=== PATIENT | female | born 1980 | race Asian ===

== ENCOUNTER 2017-12-10 19:40 | Emergency (ER) | payer BC ==
[2017-12-10 19:47] VITALS: BP 133/81
[2017-12-10] MEDS ORDERED: cephALEXin 250 MG CAPSULE PO STA (20:06)
[2017-12-10] MEDS ORDERED: HYDROcod/ACETAM 5/325 MG TABLET PO STA (20:07)
--- NOTE | 2017-12-10 20:08 | ED Physician Documentation ---
History of Present Illness - Stated complaint Stated Complaint: FEMALE - Chief complaint Chief Complaint: General - History obtained from History obtained from: Patient - History of Present Illness Timing: Other (2 months of pain, fever started today.) Pain level max: 6 Pain level now: 6 Improved by: nothing Worsened by: - Additonal information Additional information: Patient is a 37-year-old female who is breast-feeding her 7-month-old son, has had some pain over the past 2 months, worse over the past 2 days and developed fevers today. Also noted redness and swelling to the right breast. 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 - Present Medications Home Medications: Ambulatory Orders Medication Instructions Recorded Confirmed Cephalexin [Keflex] 500 mg PO Q6H #28 capsule 12/10/17 Hydrocodone/Acetaminophen 1 - 2 each PO Q6H PRN #14 tablet 12/10/17 [Hydrocodon-Acetaminophen 5-325] Lactobacillus Acidophilus 1 tab PO DAILY PM 12/10/17 12/10/17 [Probiotic Acidophilus] Valacyclovir HCl [Valtrex] 1,000 mg PO PRN 12/10/17 - Allergies Allergies/Adverse Reactions: Allergies Allergy/AdvReac Type Severity Reaction Status Date / Time No Known Drug Allergies Allergy Verified 12/10/17 19:56 - Social History Does the pt smoke?: No Smoking Status: Never smoker Does the pt drink ETOH?: Yes Does the pt have substance abuse?: No - Immunizations Immunizations are current?: Yes PD ED PE NORMAL - Vitals Vital signs reviewed: Yes - General General: Alert and oriented X 3, No acute distress - HEENT HEENT: Moist mucous membranes - Neck Neck: Supple, no meningeal sign - Cardiac Cardiac: RRR - Respiratory Respiratory: No respiratory distress, Clear bilaterally - Derm Derm: Warm and dry, Other (L breast normal. R breast is mildly swollen with erythema to the inferior aspect. no abscess or induation.) - Neuro Neuro: Alert and oriented X 3 - Psych Psych: Normal mood, Normal affect Results - Vitals Vitals: Vital Signs - 24 hr 12/10/17 19:45 Temperature 37.8 C H Heart Rate 113 H Respiratory 20 Rate Blood Pressure 133/81 H O2 Saturation 100 Oxygen O2 Source Room air PD MEDICAL DECISION MAKING - ED course Complexity details: considered differential, d/w patient ED course: Patient is a 37-year-old female presents to the emergency department what appears to be mastitis of the right breast. Will place on antibiotics and pain medication for home. Encouraged her to continue breast-feeding with the antibiotics, but careful with breast-feeding while taking any narcotic medication. No abscess. Patient counseled regarding signs and symptoms for which I believe and urgent re-evaluation would be necessary. Patient with good understanding of and agreement to plan and is comfortable going home at this time This document was made in part using voice recognition software. While efforts are made to proofread this document, sound alike and grammatical errors may occur. Departure - Departure Disposition: 01 Home, Self Care Clinical Impression: Mastitis Condition: Good Instructions: ED Breast Infec Follow-Up: Anabelle Riley PA-C [Primary Care Provider] - Within 1 week Prescriptions: Cephalexin [Keflex] 500 mg PO Q6H #28 capsule Hydrocodone/Acetaminophen [Hydrocodon-Acetaminophen 5-325] 1 - 2 each PO Q6H PRN #14 tablet PRN Reason: pain Comments: Return if you worsen. Take all antibiotics until gone. Use the narcotics sparingly as they may pass into the breast milk and affect your child. Do not drink alcohol or drive while on narcotic pain medicine. Note that many narcotic pain relievers also contain tylenol/acetaminophen. Please ensure that your total dose of acetaminophen from all sources does not exceed 3 grams (3000mg) per day. You may constipated on this medication, take a stool softener such as "Colace" twice a day while you are on it. Also recommend a [id number] laxative such as senna or MiraLAX any day that you do not have a bowel movement. If you received narcotic pain medication in the emergency department, do not drive or operate machinery for the next 24 hours. Discharge Date/Time: 12/10/17 20:15
== END 2017-12-10 20:15 | disposition home or self-care (01) ==
LOC: ED 19:40
DX: N61.0 Mastitis without abscess (principal)
CPT/HCPCS: 99283; A9270

== ENCOUNTER 2021-09-24 10:14 | Emergency (ER) | payer BC ==
[2021-09-24 10:58] LABS: BILIRUBIN,URINE NEGATIVE (NEGATIVE); GLUCOSE, URINE (UA) NEGATIVE (NEGATIVE); KETONES,URINE (UA) NEGATIVE (NEGATIVE); LEUKOCYTE ESTERASE, URINE NEGATIVE (NEGATIVE); NITRITE,URINE NEGATIVE (NEGATIVE); OCCULT BLOOD,URINE SMALL (NEGATIVE); PROTEIN,URINE NEGATIVE (NEGATIVE); UROBILINOGEN,URINE 0.2 (NORMAL) E.U./dL (NORMAL)
[2021-09-24 11:12] LABS: CLARITY,URINE CLEAR (CLEAR)
[2021-09-24 11:18] LABS: WBC,URINE 0-3 /HPF (0-5)
[2021-09-24 11:19] LABS: BACTERIA,URINE Few /HPF (None Seen); RBC,URINE 0-5 /HPF (0-5); SQUAMOUS EPITHELIAL CELL,UR FEW Squamous (<= Few)
[2021-09-24 11:22] LABS: BASOPHILS # (AUTO) 0.1 10^3/uL (0.0-0.1); BASOPHILS % (AUTO) 0.5 %; EOSINOPHILS # (AUTO) 0.2 10^3/uL (0.0-0.7); EOSINOPHILS % (AUTO) 1.7 %; HGB - HEMOGLOBIN 14.8 g/dL (12.0-16.0); LYMPHOCYTES # (AUTO) 2.6 10^3/uL (1.5-3.5); LYMPHOCYTES % (AUTO) 24.1 %; MEAN CORPUSCULAR HEMOGLOBIN 27.7 pg (27.0-31.0); MEAN CORPUSCULAR HGB CONC 34.4 g/dL (32.0-36.0); MEAN CORPUSCULAR VOLUME 80.5 fL (81.0-99.0); MEAN PLATELET VOLUME 10.8 fL (7.9-10.8); MONOCYTES # (AUTO) 1.1 10^3/uL (0.0-1.0); MONOCYTES % (AUTO) 10.7 %; NEUTROPHILS # (AUTO) 6.7 10^3/uL (1.5-6.6); NEUTROPHILS % (AUTO) 62.7 %; PLT - PLATELET COUNT 52 10^3/uL (130-450); RED BLOOD COUNT 5.34 10^6/uL (4.20-5.40); RED CELL DISTRIBUTION WIDTH 12.1 % (12.0-15.0); WHITE BLOOD COUNT 10.6 x10^3/uL (4.8-10.8)
--- NOTE | 2021-09-24 11:49 | ED Physician Documentation ---
History of Present Illness - Stated complaint Stated Complaint: BODY ACHES - Chief complaint Chief Complaint: Neuro - History obtained from History obtained from: Patient - History of Present Illness Timing: How many days ago (2-3) Pain level max: 4 Pain level now: 3 - Additonal information Additional information: Patient is a 41-year-old female who complains of body aches, rhinorrhea and congestion for the past several days. She also complains of a sore throat, worse with swallowing. Occasionally coughs up sputum. Denies any possibility of . Has had a tubal ligation. Has had her Covid vaccinations. Patient states that she has a history of pneumonia in the past and is concerned about recurrent pneumonia. 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, 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 - Present Medications Home Medications: Ambulatory Orders Medication Instructions Recorded Confirmed Lactobacillus Acidophilus 1 tab PO DAILY PM 12/10/17 09/24/21 [Probiotic Acidophilus] Valacyclovir HCl [Valtrex] 1,000 mg PO PRN PRN 12/10/17 09/24/21 - Allergies Allergies/Adverse Reactions: Allergies Allergy/AdvReac Type Severity Reaction Status Date / Time No Known Drug Allergies Allergy Verified 09/24/21 10:28 - Social History Does the pt smoke?: No Smoking Status: Never smoker Does the pt drink ETOH?: Yes Does the pt have substance abuse?: No - Immunizations Immunizations are current?: Yes PD ED PE NORMAL - Vitals Vital signs reviewed: Yes - General General: Alert and oriented X 3, No acute distress, Well developed/nourished - HEENT HEENT: PERRL, Ears normal, Moist mucous membranes, Other (Posterior cobblestoning in the oropharynx. No exudates.) - Neck Neck: Supple, no meningeal sign - Cardiac Cardiac: RRR, Strong equal pulses - Respiratory Respiratory: No respiratory distress, Clear bilaterally - Abdomen Abdomen: Soft, Non tender, Non distended - Derm Derm: Warm and dry - Extremities Extremities: No edema - Neuro Neuro: Alert and oriented X 3 - Psych Psych: Normal mood, Normal affect Results - Vitals Vitals: Vital Signs - 24 hr 09/24/21 09/24/21 10:24 13:15 Temperature 36.2 C L Heart Rate 109 H 113 H Respiratory 16 16 Rate Blood Pressure 144/77 H 135/77 H O2 Saturation 99 100 Oxygen O2 Source Room air - Labs Labs: Laboratory Tests 09/24/21 09/24/21 09/24/21 10:50 11:09 11:40 WBC 10.6 RBC 5.34 Hgb 14.8 Hct 43.0 MCV 80.5 L MCH 27.7 MCHC 34.4 RDW 12.1 Plt Count 52 L MPV 10.8 Neut # (Auto) 6.7 H Lymph # (Auto) 2.6 Millard # (Auto) 1.1 H Eos # (Auto) 0.2 Baso # (Auto) 0.1 Absolute Nucleated RBC 0.00 Nucleated RBC % 0.0 Sodium 135 Potassium 4.4 Chloride 102 Carbon Dioxide 21 Anion Gap 12.0 BUN 10 Creatinine 0.5 Estimated GFR (MDRD) 135 Glucose 93 Calcium 9.1 Total Bilirubin 0.6 AST 25 ALT 31 Alkaline Phosphatase 73 Total Protein 7.6 Albumin 3.8 Globulin 3.8 Albumin/Globulin Ratio 1.0 Lipase 32 Urine Color LIGHT YELLOW Urine Clarity CLEAR Urine pH 6.0 Ur Specific Lanse <=1.005 Urine Protein NEGATIVE Urine Glucose (UA) NEGATIVE Urine Ketones NEGATIVE Urine Occult Blood SMALL H Urine Nitrite NEGATIVE Urine Bilirubin NEGATIVE Urine Urobilinogen 0.2 (NORMAL) Ur Leukocyte Esterase NEGATIVE Urine RBC 0-5 Urine WBC 0-3 Ur Squamous Epith Cells FEW Squamous Urine Bacteria Few Urine Culture Comments NOT INDICATED - Rads (name of study) cxr Radiology: Final report received, EMP read contemporaneously, See rad report (no acute disease) PD MEDICAL DECISION MAKING - ED course Complexity details: reviewed results, re-evaluated patient, considered differential, d/w patient ED course: Patient appears to have a viral upper respiratory infection. She is well- appearing, nontoxic. Afebrile. We will have her follow-up with her doctor for further care. Covid test was sent. Patient counseled regarding signs and symptoms for which I believe and urgent re-evaluation would be necessary. Patient with good understanding of and agreement to plan and is comfortable going home at this time This document was made in part using voice recognition software. While efforts are made to proofread this document, sound alike and grammatical errors may occur. Departure - Departure Disposition: Home, Self Care Clinical Impression: Viral upper respiratory infection Condition: Good Instructions: ED URI Viral Follow-Up: MACIE JOHNSON [Primary Care Provider] - Comments: You appear to have a viral upper respiratory infection. A Covid test was sent. This will be back in 1 to 2 days. Drink plenty of fluids and rest. Return if you worsen. Discharge Date/Time: 09/24/21 13:16
[2021-09-24 11:59] LABS: ALBUMIN 3.8 g/dL (3.2-5.5); BILIRUBIN,TOTAL 0.6 mg/dL (0.2-1.0); CALCIUM 9.1 mg/dL (8.5-10.3); CREATININE 0.5 mg/dL (0.4-1.0); POTASSIUM 4.4 mmol/L (3.5-5.0); TOTAL PROTEIN 7.6 g/dL (6.7-8.2)
--- NOTE | 2021-09-24 12:44 | XRAY Report ---
PROCEDURE: Chest 2 View X-Ray INDICATIONS: cough TECHNIQUE: 2 view(s) of the chest. COMPARISON: None. FINDINGS: SUPPORT DEVICES: None. LUNGS/PLEURA: No focal consolidation, pleural effusion or space-occupying pneumothorax. A few nodular densities are seen, likely reflecting granulomatous change. MEDIASTINUM: The cardiomediastinal silhouette is within normal limits. BONES/SOFT TISSUES: No acute abnormality. IMPRESSION: 1.No acute cardiopulmonary abnormality. Reviewed by: Venkat Demarco MD on 09/24/2021 12:43 PM PST Approved by: Venkat Demarco MD on 09/24/2021 12:43 PM PST Station ID: [id number]
[2021-09-24 13:16] VITALS: BP 135/77
== END 2021-09-24 13:16 | disposition home or self-care (01) ==
LOC: ED 10:14
DX: J06.9 Acute upper respiratory infection, unspecified (principal); Z20.822 Contact with and (suspected) exposure to COVID-19
CPT/HCPCS: 36415; 80053; 81001; 83690; 85025; 87086; 99282; 99284

== ENCOUNTER 2023-09-24 06:49 | Emergency (ER) | payer BC ==
[2023-09-24] MEDS ORDERED: ACETAMINOPHEN 500 MG TABLET PO STA (07:29)
[2023-09-24 07:54] LABS: RAPID STREP SCREEN POSITIVE (Negative)
[2023-09-24] MEDS ORDERED: AMOXICILLIN 250 MG CAPSULE PO STA (08:03)
--- NOTE | 2023-09-24 08:09 | ED Physician Documentation ---
PD HPI HEENT - Stated complaint Stated Complaint: BODY PX/SORE THROAT - Chief complaint Chief Complaint: Heent - History obtained from History obtained from: Patient - Additional information Additional information: Patient is a 43-year-old female presenting for evaluation of right-sided sore throat for the past 2 days with body aches and chills. She has not measured her temperature. She has been using acetaminophen and ibuprofen for the body aches and chills with the last dose being 400 mg of ibuprofen at 2:00 this morning. She has had on and off discomfort in the right tonsil since about November of this year. She has seen ENT for it to did not offer any intervention. She states she coughed up to tonsil stones yesterday. She has had an on and off cough for a few months. Since she had COVID which was 3 months ago.She has been tolerating p.o. 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 Review of Systems Constitutional: reports: Chills, Myalgias Throat: reports: Sore throat Cardiac: denies: Chest pain / pressure Respiratory: reports: Cough. denies: Dyspnea GI: denies: Abdominal Pain, Vomiting PD PAST MEDICAL HISTORY - Past Medical History Past Medical History: Yes Cardiovascular: None Respiratory: Pneumonia Neuro: None Endocrine/Autoimmune: None GI: None SPRING LAYER: None : None HEENT: None Psych: None Musculoskeletal: None Derm: None Other Past Medical History: TONSIL STONE/NODULE? 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, Tubal ligation - Present Medications Home Medications: Ambulatory Orders Medication Instructions Recorded Confirmed Lactobacillus Acidophilus 1 tab PO DAILY PM 12/10/17 09/24/21 [Probiotic Acidophilus] Valacyclovir HCl [Valtrex] 1,000 mg PO PRN PRN 12/10/17 09/24/21 Amoxicillin 500 mg PO BID 10 Days #20 cap 09/24/23 - Allergies Allergies/Adverse Reactions: Allergies Allergy/AdvReac Type Severity Reaction Status Date / Time No Known Drug Allergies Allergy Verified 09/24/23 07:05 - Social History Does the pt smoke?: No Smoking Status: Never smoker Does the pt drink ETOH?: Yes Does the pt have substance abuse?: No - Immunizations Immunizations are current?: Yes - POLST Patient has POLST: No PD ED PE NORMAL - General General: Alert and oriented X 3, No acute distress, Well developed/nourished - HEENT HEENT: Atraumatic, Moist mucous membranes, Other (Right tonsillar enlargement, no signs of peritonsillar abscess, uvula is midline, normal speech, no trismus, no exudate) - Neck Neck: Supple, no meningeal sign - Cardiac Cardiac: RRR, No murmur - Respiratory Respiratory: No respiratory distress, Clear bilaterally - Abdomen Abdomen: Soft, Non tender, Non distended - Derm Derm: Warm and dry - Neuro Neuro: Normal speech Results - Vitals Vitals: Vital Signs - 24 hr 09/24/23 09/24/23 09/24/23 07:02 08:07 08:26 Temperature 37.1 C 38.0 C H Heart Rate 126 H 128 H Respiratory 19 18 Rate Blood Pressure 138/75 H 140/76 H O2 Saturation 100 98 Oxygen O2 Source Room air - Labs Labs: Laboratory Tests 09/24/23 09/24/23 07:31 07:33 Nasal Adenovirus (PCR) NOT DETECTED Nasal B. parapertussis DNA (PCR) NOT DETECTED Nasal Coronavir 229E PCR NOT DETECTED Nasal Coronavir HKU1 PCR NOT DETECTED Nasal Coronavir NL63 PCR NOT DETECTED Nasal Coronavir OC43 PCR NOT DETECTED Nasal Enterovir/Rhinovir PCR NOT DETECTED Nasal Influenza B PCR NOT DETECTED Nasal Influenza A PCR NOT DETECTED Nasal Parainfluen 1 PCR NOT DETECTED Nasal Parainfluen 2 PCR NOT DETECTED Nasal Parainfluen 3 PCR NOT DETECTED Nasal Parainfluen 4 PCR NOT DETECTED Nasal RSV (PCR) NOT DETECTED Nasal B.pertussis DNA PCR NOT DETECTED Nasal C.pneumoniae (PCR) NOT DETECTED [employer] Human Metapneumo PCR NOT DETECTED Nasal M.pneumoniae (PCR) NOT DETECTED Nasal SARS-CoV-2 (PCR) NOT DETECTED Group A Strep Rapid POSITIVE H PD Medical Decision Making - ED course Complexity details: reviewed results, re-evaluated patient, d/w patient ED course: Patient is a 43-year-old female here presenting for evaluation of sore throat, body aches, chills for the past 2 days. On exam has no signs of deep space infection or peritonsillar abscess. Normal speech. She is tachycardic and did develop a low-grade fever here. She was given acetaminophen. Her strep test is positive and she was started on antibiotics.Chest x-ray is negative for infiltrate or effusion. Respiratory swab is negative. Patient understands plan for treatment with antibiotics as well as concerning symptoms to return for. Departure - Departure Disposition: 01 Home, Self Care Clinical Impression: Strep pharyngitis Condition: Stable Instructions: ED Strep Pharyngitis Conf Prescriptions: Amoxicillin 500 mg PO BID 10 Days #20 cap Comments: You have tested positive for strep infection. I am starting you on an antibiotic called amoxicillin and sent this prescription to [facility] in [place]. Please make sure to complete the course of the antibiotics. Continue with acetaminophen or ibuprofen as needed for fever or pain. Please also make sure you are staying hydrated. Return to the emergency department with any worsening symptoms. You have a COVID test which is pending.We will notify you if this is positive. The swab will also check for other viruses and you can check the results of the swab later today. Forms: PCP List, Activity restrictions Discharge Date/Time: 09/24/23 08:26
[2023-09-24 08:31] VITALS: BP 140/76; O2SAT 98
[2023-09-24 08:33] LABS: B. PARAPERTUSSIS- RESP PCR PAN NOT DETECTED; B. PERTUSSIS- RESP PCR PANEL NOT DETECTED; C. PNEUMONIAE- RESP PCR PANEL NOT DETECTED; CORONAVIRUS 229E-RESP PCR NOT DETECTED; CORONAVIRUS HKU1-RESP PCR NOT DETECTED; CORONAVIRUS NL63-RESP PCR NOT DETECTED; CORONAVIRUS OC43-RESP PCR NOT DETECTED; HUMAN METAPNEUMOVIRUS NOT DETECTED; INFLUENZA A- RESP PCR PANEL NOT DETECTED; INFLUENZA B - RESP PCR PANEL NOT DETECTED; M. PNEUMONIAE- RESP PCR PANEL NOT DETECTED; PARAINFLUENZA VIRUS 1 NOT DETECTED; PARAINFLUENZA VIRUS 2 NOT DETECTED; PARAINFLUENZA VIRUS 3 NOT DETECTED; PARAINFLUENZA VIRUS 4 NOT DETECTED; RHINOVIRUS/ENTEROVIRUS NOT DETECTED; RSV- RESP PCR PANEL NOT DETECTED; SARS-CoV-2 -RESP PCR PANEL NOT DETECTED
--- NOTE | 2023-09-24 08:33 | XRAY Report ---
PROCEDURE: Chest 1 View X-Ray INDICATIONS: cough x weeks TECHNIQUE: One view of the chest was acquired. COMPARISON: 09/24/2021 FINDINGS: Surgical changes and devices: None. Lungs and pleura: No dense consolidation or pleural effusion. Mediastinum: Normal heart size Bones and chest wall: Degenerative changes IMPRESSION: No acute radiographic abnormality on this single view portable radiograph. Agree with preliminary rep ort. Reviewed by: Jhonny Arevalo MD on 09/24/2023 8:31 AM PST Approved by: Jhonny Arevalo MD on 09/24/2023 8:31 AM PST Station ID: [id number]
== END 2023-09-24 08:26 | disposition home or self-care (01) ==
LOC: ED 06:49
DX: J02.0 Streptococcal pharyngitis (principal); Z11.52 Encounter for screening for COVID-19; Z79.899 Other long term (current) drug therapy
CPT/HCPCS: 71045; 87430; 87633; 99284; A9270

== ENCOUNTER 2024-03-02 08:07 | Emergency (ER) | payer BC ==
--- NOTE | 2024-03-02 09:26 | ED Physician Documentation ---
PD HPI URI - Stated complaint Stated Complaint: BODY ACHES - Chief complaint Chief Complaint: General - History obtained from History obtained from: Patient - History of Present Illness Timing - onset: How many months ago (3) Timing duration: Months (3) Timing details: Gradual onset, Still present, Waxing and waning Associated symptoms: Nasal congestion, Rhinorrhea, Sinus pain, Sore throat, Productive cough, Dyspnea Improves by: Rest, Medication Similar symptoms before: No diagnosis Recently seen: Clinic - Additional information Additional information: Soto Ibrahim is a 43y/o female with a 3 month long history of aches and URI symptoms. She has a persistent cough productive of sputum. She has been seen a the [facility] X [facility]. She has been tested for virus. There have been no specific physical findings. 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 Surgical 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: No /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, Tubal 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 - Present Medications Home Medications: Ambulatory Orders Medication Instructions Recorded Confirmed Lactobacillus Acidophilus 1 tab PO DAILY PM 12/10/17 09/24/21 [Probiotic Acidophilus] Valacyclovir HCl [Valtrex] 1,000 mg PO PRN PRN 12/10/17 09/24/21 Amoxicillin 500 mg PO BID 10 Days #20 cap 09/24/23 Amox/Clav 875/125 [Augmentin] 1 each PO Q12H #20 tablet 03/02/24 - Allergies Allergies/Adverse Reactions: Allergies Allergy/AdvReac Type Severity Reaction Status Date / Time No Known Drug Allergies Allergy Verified 03/02/24 08:20 - Social History Does the pt smoke?: No Smoking Status: Never smoker Does the pt drink ETOH?: Yes Does the pt have substance abuse?: No - Immunizations Immunizations are current?: Yes - POLST Patient has POLST: No PD ED PE NORMAL - Vitals Vital signs reviewed: Yes (tachy and hypertensive ) - General General: Alert and oriented X 3, No acute distress, Well developed/nourished - HEENT HEENT: Atraumatic, PERRL, EOMI, Ears normal, Moist mucous membranes, Pharynx benign, Dentition benign, Other (no sinus point tenderness) - Neck Neck: Supple, no meningeal sign, No bony TTP - Cardiac Cardiac: RRR, No murmur - Respiratory Respiratory: No respiratory distress, Clear bilaterally - Abdomen Abdomen: Soft, Non tender - Back Back: No CVA TTP, No spinal TTP - Derm Derm: Normal color, Warm and dry, No rash - Extremities Extremities: No deformity, No edema - Neuro Neuro: Alert and oriented X 3, securities dealer 2-12 intact, No motor deficit, No sensory deficit, Normal speech Eye Opening: Spontaneous Motor: Obeys Commands Verbal: Oriented GCS Score: 15 - Psych Psych: Normal mood, Normal affect Results - Vitals Vitals: Vital Signs - 24 hr 03/02/24 03/02/24 08:15 10:17 Temperature 36.4 C L Heart Rate 119 H 78 Respiratory 20 20 Rate Blood Pressure 151/91 H 150/68 H O2 Saturation 97 100 Oxygen O2 Source Room air - Rads (name of study) CHEST Relevant Findings:: Prelim report reviewed (Impression: No acute cardiopulmonary process.), EMP independent interpretation of test PD Medical Decision Making - ED course Complexity details: considered differential, d/w patient ED course: 43-year-old female with a months long history of cough productive of sputum and bodyaches. She does not have anything obvious on physical examination with the exception of some cryptic tonsils which are without exudate. She does have postnasal drainage and production of green phlegm and I suspect she has some inflammation associated with some superficial infection. She is given a dose of dexamethasone here and we will place her on a short course of antibiotic for any improvement possible. In addition she could have long COVID and she may have symptoms similar for several more months. I discussed this possibility with the patient as well. Departure - Departure Disposition: 01 Home, Self Care Clinical Impression: Sinusitis Qualifiers: Sinusitis location: unspecified location Chronicity: subacute Qualified Code(s): J01.90 - Acute sinusitis, unspecified Condition: Stable Instructions: ED Sinusitis Abx Tx Follow-Up: SHAHEED RODRIGUEZ DO [Physician No Access] - Prescriptions: Amox/Clav 875/125 [Augmentin] 1 each PO Q12H #20 tablet Comments: Soto, today it looks like there is likely a portion of your sinuses that have a subacute infection resulting in periodic phlegm production. As your body tries to fight this it typically will cause some body aches. There is an alternative explanation for this. You may have long COVID. Today we are placing you on a course of empiric antibiotic with the expectation that we will get resolution of the phlegm production. The antibiotic has been e-scribed to the [facility] in [place]. We gave you a dose of dexamethasone today and we expect improvement in nasal congestion for 2 days. My recommendation for persistent nasal congestion is to use over the counter Nasacort. Discharge Date/Time: 03/02/24 10:19
[2024-03-02] MEDS: CHERRY SYRUP 10 ML UDC PO ONE (09:40)
[2024-03-02] MEDS: DEXAMETHASONE 10 MG/ML VIAL PO STA (09:40)
--- NOTE | 2024-03-02 09:51 | XRAY Report ---
PROCEDURE: Chest 1V INDICATIONS: cough phlegm short of breath TECHNIQUE: One view of the chest was acquired. COMPARISON: 09/24/2023, 09/24/2021 FINDINGS: Surgical changes and devices: None. Lungs and pleura: No pleural effusions or pneumothorax. Lungs are clear. Mediastinum: Mediastinal contours appear normal. Heart size is normal. Bones and chest wall: No suspicious bony lesions. Overlying soft tissues appear unremarkable. IMPRESSION: No acute cardiopulmonary process. Reviewed by: Abdullahi Leonard MD on 03/02/2024 8:49 AM ROSS Approved by: Abdullahi Leonard MD on 03/02/2024 8:49 AM ROSS Station ID: [id number]
[2024-03-02 10:22] VITALS: BP 150/68; O2SAT 100
== END 2024-03-02 10:19 | disposition home or self-care (01) ==
LOC: ED 08:07
DX: J01.90 Acute sinusitis, unspecified (principal)
CPT/HCPCS: 71045; 99283; 99284; A9270